=== PATIENT | male | born 1990 | race Two or more races ===

== ENCOUNTER → 2020-02-15 | Emergency (ER) | payer MEDICAID, OTHER ==
[~2020-02-15] MED LIST: HYDROcodone-ACET 10/325MG TAB PO ONE; LIDOCAINE 1% HCL (LOCAL ANESTH.) INJ 20ML MDV IJ ONE; cefTRIAXone SOD 1,000 MG VL IM ONE
[2020-02-15 18:49] VITALS: BP 144/85
== END | disposition home or self-care (01) ==
LOC: ER 18:12
DX: H66.42 Suppurative otitis media, unspecified, left ear (principal)
CPT/HCPCS: 96372; 99283; J0696; J2001